=== PATIENT | male | born 1995 | race Caucasian/White ===

== ENCOUNTER 2017-05-13 17:53 | Emergency (ER) | payer BC ==
[2017-05-13 17:58] VITALS: BP 134/84; BMI 20.9
--- NOTE | 2017-05-13 18:42 | DR.PENILE ---
HPI - Time Seen Time seen: 18:20 - PCP Primary Care Physician: UZIEL - HPI Comment HPI Comment: He states, I think I got Chlamydia. Primarily, he has been having genital discharge, dysuria and discomfort of his testes. He denies fever. He admits to having unprotected sex with multiple partners. He knows some of the features of STDs as he has had this before. Symptom onset x 3 weeks ago. - Complaint Chief Complaint:: PT. STATES "I THINK I'VE GOT THE CLAP." PT. STATES THE SYMPTOMS BEGAN 3 WEEKS AGO AND HE STATES HE HAS A CLOUDY DISCHARGE FROM HIS PENIS, PAINFUL URINATION, AND HIS TESTICLES ARE REDDENED. PT. ADMITS TO HAVING UNPROTECTED SEX WITH MORE THAN ONE PARTNER. - Reviewed Nurses Notes Reviewed: Yes - Source History Provided: Patient - Mode of Arrival Mode of Arrival: Ambulatory - Timing Onset of Chief Complaint: 04/22/17 - Context Patient: Sexually Active History Of: STD - Severity Pain: Moderate - Associated Signs and Symptoms Associated Signs and Symptoms: None PMH - PMH Past Medical History: No Past Medical History: Seizures Past Surgical History: No Surgical History: No History - Family History History of Family Medical Conditions: No - Social History Does patient currently use any type of tobacco product: Yes Have you used tobacco products in the last 12 months: Yes Type of Tobacco Use: Cigarettes Does any household member use tobacco: No Alcohol Use: None Do you use any recreational Drugs:: No Lives With: Alone Lives Where: Home - infectious screening In the last 2 months have you had wt loss of >10#?: NO Have you had fever, night sweats or hemotysis?: No Have you traveled outside the country in the last 6 months?: No Isolation: Standard ROS - Review of Systems Constitutional: No Symptoms Reported Eyes: No Symptoms Reported ENTM: No Symptoms Reported Respiratoy: No Symptoms Reported Cardiovascular: No Symptoms Reported Gastrointestinal/Abdominal: No Symptoms Reported Genitourinary: See HPI, Discharge, Dysuria Neurological: No Symptoms Reported Musculoskeletal: No Symptoms Reported Integumentary: No Symptoms Reported Hematologic/Lymphatic: No Symptoms Reported Endocrine: No Symptoms Reported Psychiatric: No Symptoms Reported All Other Systems: Reviewed and Negative PE - Vital Signs Vitals: Temperature 99 F Pulse Rate 80 Respiratory Rate 18 Blood Pressure [Right Arm] 124/74 Blood Pressure 134/84 O2 Sat by Pulse Oximetry 99 - General Limitations: No Limitations General Appearance: Alert, In No Apparent Distress - Head Head Exam: Normal Inspection - Eyes Eye exam: Normal Appearance, PERRL, EOMI - ENT ENT Exam: Normal Exam - Neck Neck Exam: Normal Inspection - Chest Chest Inspection: Normal Inspection - Respiratory Respiratory Exam: Normal Lung Sounds Bilat - Cardiovascular Cardiovascular Exam: Regular Rate, Normal Rhythm - Abdominal Exam Abdominal Exam: Normal Inspection, Normal Bowel Sounds, Soft - Rectal Rectal Exam: Deferred - Genitourinary Exam: Male: Normal Inspection, Testicular Tenderness, Erythema. negative: Urethral Discharge, Balanitis, Priapism, Ulcerations, Inguinal Hernial, Inguinal Lymphadenopathy, Other Scrotal Exam: testicular Tenderness: Bilateral - Extremities Extremities Exam: Normal Inspection - Back Back Exam: Normal Inspection - Neurologic Neurological Exam: Alert, Oriented X3, CN II-XII Intact - Psychiatric Psychiatric Exam: Normal Affect, Normal Mood - Skin Skin Exam: Warm, Dry, Intact, Normal Color MDM - Differential Diagnosis Differential Diagnosis: Epididymitis, Urethritis, Chlamydial, Gonococcal, UTI Course - Treatment Treatment: Pt. is to give urine for diagnostic tests. Shortly thereafter, it was noted that he has disappeared from the E.D. He had apparently got dressed and walked out. - Education/Counseling Education/Counseling: Patient, Counseling Educated On: Needs for Follow Up - Diagnosis Discharge Problem: Discharge from urethra in male, Discharge from penis - Discharge Plan Disposition: 07 AGAINST MEDICAL ADVICE Condition: Stable - Follow ups/Referrals Follow ups/Referrals: KIMBERLY TRIPLETT [Primary Care Provider] - 3 days - Instructions
== END 2017-05-13 18:50 | disposition left against medical advice (07) ==
LOC: ER 17:58
DX: R36.9 Urethral discharge, unspecified (principal)
CPT/HCPCS: 99281